=== PATIENT | female | born 1960 | race Caucasian/White ===

== ENCOUNTER 2017-03-01 08:24 | Inpatient (IN) | payer BC ==
[2017-03-01] VITALS (25 sets, daily range): BP systolic 102–138; BP diastolic 62–83; PULSE 58–77; RESP 11–26; Ht 160 cm; Wt 86.7 kg
[~2017-03-01] VITALS: Ht 160 cm; Wt 86.7 kg
[~2017-03-01 08:24] MED LIST: BUPIVACAINE 0.5% (SDV) 30 ML, morphine SULFATE (PF) 8 MG, EPINEPHrine 0.3 MG, KETOROLAC... IRR SCH; CEFAZOLIN 2 GM/50 ML (PMX) 50 ML IVPB SCH; DEXAMETHASONE 1 MG TAB PO SCH; GABAPENTIN 300 MG CAP PO SCH; SOD CHLORIDE 0.9% 100 ML, TRANEXAMIC ACID 3,000 MG IRR SCH; TRANEXAMIC ACID 1,000 MG in SOD CHLORIDE 0.9% 100 ML IVPB SCH
--- NOTE | 2017-03-01 08:44 | HPN ---
Date/Time of Note Date/Time of Note DATE: 03/01/17 TIME: 08:43 Interval H&P Admission Note Pt. seen H&P reviewed: No system changes AARON ACEVEDO MD Mar 01, 2017 08:44
[2017-03-01] MEDS ORDERED: VALS1TAB78 PO (09:19)
[2017-03-01] MEDS ORDERED: AMLO5TAB4 PO (09:22)
[2017-03-01] MEDS ORDERED: LACTATED RINGER'S 1,000 ML IV* SCH (10:00)
[2017-03-01] MEDS ORDERED: DIPHENHYDRAMINE 50 MG INJ IV PRN ×2 (11:00→14:30)
[2017-03-01] MEDS ORDERED: FENTAnyl 50 MCG/ML VIAL IV PRN ×2 (11:00)
[2017-03-01] MEDS ORDERED: HYDROmorphONE (0.2 MG/ML) 10ML SYG IV PRN ×2 (11:00)
[2017-03-01] MEDS ORDERED: OXYCODONE/ACETAMINOPHEN (5/325) TAB PO PRN ×2 (11:00→14:30)
[2017-03-01] MEDS ORDERED: ONDANSETRON 4 MG INJ IV PRN ×2 (11:00→14:30)
[2017-03-01] MEDS ORDERED: METOCLOPRAMIDE 10 MG INJ IV PRN (11:00)
[2017-03-01] MEDS ORDERED: MEPERIDINE 25 MG INJ IV PRN (11:00)
[2017-03-01] MEDS ORDERED: THROMBIN 5000 UNIT VIAL ONE (11:30)
[2017-03-01] MEDS ORDERED: POLYMYXIN/BACITRACIN 1L IRRIG ONE (11:30)
[2017-03-01] MEDS ORDERED: morphine SULFATE/PF (10 MG/10 ML) INJ ONE (11:56)
[2017-03-01] MEDS ORDERED: MIDAZOLAM 1 MG/ML 2 ML INJ ONE (12:02)
[2017-03-01] MEDS ORDERED: CEFAZOLIN 1 GM INJ ONE (12:41)
[2017-03-01] MEDS ORDERED: LIDOCAINE 2% (SDV) 5 ML INJ ONE (12:41)
[2017-03-01] MEDS ORDERED: PROPOFOL 20 ML ONE (12:41)
[2017-03-01] MEDS ORDERED: SUCCINYLCHOLINE CHLORIDE 100 MG/5 ML SYG IV ONE (12:41)
[2017-03-01] MEDS ORDERED: ROCURONIUM 50 MG INJ ONE (12:41)
[2017-03-01] MEDS ORDERED: SUGAMMADEX SODIUM 200 MG/2 ML VIAL IV ONE (12:41)
[2017-03-01] MEDS ORDERED: CA CHLORIDE (GM) 10% 10 ML INJ INJ ONE (13:38)
--- NOTE | 2017-03-01 14:25 | OPR ---
Date/Time of Note Date/Time of Note DATE: 03/01/17 TIME: 14:19 Operative Report Procedure Date: Mar 01, 2017 Preoperative Diagnosis Right hip arthritis Postoperative Diagnosis Right hip primary arthritis Operation Performed Right total hip replacement Surgeon: AARON ACEVEDO MD [employer]: JOSAFAT RINALDI MD Anesthesia Type: general Estimated Blood Loss: 50 - 100 ml's Transfusion Required: no Complications: no Pt Condition Post Procedure: stable Disposition: PACU Procedure Description HOGSHEAD STRIPPER SURGEON: Josafat Rinaldi MD was asked to be present at my request as a result of the complexity associated with this procedure including positioning of the extremity, positioning of the instrumentation and protection of the neurovascular structures. In my opinion, the assistance offered by a assembler surgical garment is insufficient and Laurie Rinaldi should be compensated for his time. PROCEDURE IN DETAIL: Following the administration of general endotracheal anesthesia supplemented with a spinal anesthetic, the patient was placed in the supine position. The bilateral lower extremities were then prepped and draped in the usual sterile fashion. A field service supervisor radiograph was obtained for preliminary limb length and femoral size as well as acetabular size. A lateral incision was then made exposing the tensor fascia the fascia was incised the tensor was retracted laterally and the vessels were cauterized. The anterior capsule was then identified and prepared. A capsulectomy was then performed and the femoral head was then evaluated. Severe arthritic changes were noted. A femoral head cut was then made in the appropriate degree of version and inclination. The acetabulum was then exposed and a capsulectomy and labrectomy were completed. The central portion was then entered and serially reamed up to the 47 mm size. A Depuy [place] cup which is 48 mm in size with a standard liner was then fit into position with solid fixation. A 30 mm screw was used for additional fixation. Attention was then directed to the femur, the femur was exposed and prepared. The canal was entered and serially reamed up to the 9 mm size. A 9 mm Depuy [place] stem was then inserted with solid fixation. A +1.5 femoral head, which was ceramic was then inserted. The leg was taken through full range of motion with no evident instability. In addition, radiographs revealed excellent position with reproduction of the limb lengths within a millimeter. The wound was irrigated thoroughly. The wound was then closed in layers and a Prenio for the final cover. This was watertight. Estimated blood loss was procedure was 100 cc. Postoperative radiographs will be obtained in the recovery room. AARON ACEVEDO MD Mar 01, 2017 14:25
[2017-03-01] MEDS ORDERED: morphine 4 MG/ML VIAL IV PRN (14:30)
[2017-03-01] MEDS ORDERED: MAGNESIUM HYDROXIDE 30ML CUP PO PRN (14:30)
[2017-03-01] MEDS ORDERED: KETOROLAC 15 MG INJ IV PRN (14:30)
[2017-03-01] MEDS ORDERED: ACETAMINOPHEN 500 MG TAB PO PRN (14:30)
[2017-03-01] MEDS ORDERED: morphine 2 MG INJ IV PRN (14:30)
[2017-03-01] MEDS ORDERED: ZOLPIDEM 5 MG TAB PO PRN (14:30)
[2017-03-01] MEDS ORDERED: BETHANECHOL 25 MG TAB PO PRN (14:30)
[2017-03-01] MEDS ORDERED: TRANEXAMIC ACID 1,000 MG in SOD CHLORIDE 0.9% 100 ML IV ONE (14:30)
[2017-03-01] MEDS: CEFAZOLIN 1 GM/50 ML (PMX) 50 ML IVPB SCH ×2 (15:24→22:37)
[2017-03-01] MEDS: LACTATED RINGER'S 1,000 ML IV SCH (15:24)
--- NOTE | 2017-03-01 15:52 | RADRPT ---
PROCEDURE: XR Pelvis. CLINICAL INDICATION: Pelvic pain. Postop. TECHNIQUE: Single frontal view. COMPARISON: Intraoperative imaging done earlier the same day. FINDINGS: There is a right hip total arthroplasty. This appears satisfactory with no fracture, dislocation or loosening. There is no lytic lesion. The left hip is normal. Gas is present in the soft tissues overlying the right hip from the recent surgery. There is a Haji catheter in the bladder. IMPRESSION: 1. Satisfactory postoperative appearance of the right hip. RPTAT: QQ .Contreras Ruth MD, MD Date Time Electronically viewed and signed by .Contreras Ruth MD, on 03/01/2017 15:52 .R/
--- NOTE | 2017-03-01 15:53 | RADRPT ---
PROCEDURE: Intraoperative imaging of the right hip with fluoroscopy. CLINICAL INDICATION: Right hip pain. Intraoperative. TECHNIQUE: Four images of the right hip were obtained in the operating room with an image intensif ier. No radiologist was in attendance. 0.5 minutes of fluoroscopy time was used. COMPARISON: No prior study is available for comparison. FINDINGS: Images demonstrate placement of a total right hip arthroplasty. IMPRESSION: 1. Satisfactory intraoperative imaging of the right hip. RPTAT: QQ .Contreras Ruth MD, MD Date Time Electronically viewed and signed by .Contreras Ruth MD, on 03/01/2017 15:52 .R/
[2017-03-01 16:48] LABS: BASOPHILS % 0.4 % (0.0-2.0); EOSINOPHILS % 0.3 % (0.0-7.0); HEMATOCRIT 36.4 % (37.0-47.0); HEMOGLOBIN 11.6 g/dl (12.0-16.0); LYMPHOCYTES # 1.1 10^3/ul (0.8-2.9); LYMPHOCYTES % 10.6 % (15.0-51.0); MEAN CORPUSCULAR HEMOGLOBIN 29.5 pg (29.0-33.0); MEAN CORPUSCULAR HGB CONC 31.9 g/dl (32.0-37.0); MEAN CORPUSCULAR VOLUME 92.6 fl (82.0-101.0); MEAN PLATELET VOLUME 10.7 fl (7.4-10.4); MONOCYTE # 0.3 10^3/ul (0.3-0.9); MONOCYTES % 2.9 % (0.0-11.0); NEUTROPHIL # 8.7 10^3/ul (1.6-7.5); NEUTROPHILS % 85.1 % (39.0-77.0); PLATELET COUNT 249 10^3/UL (140-415); RED BLOOD COUNT 3.93 10^6/ul (4.20-5.40); WHITE BLOOD COUNT 10.2 10^3/ul (4.8-10.8)
[2017-03-01] MEDS: DEXAMETHASONE 2 MG TAB PO SCH (18:48)
[2017-03-01] MEDS: SENNA/DOCUSATE NA (8.6MG/50MG) TAB PO SCH (20:44)
[2017-03-01] MEDS ORDERED: GABAPENTIN 300 MG CAP PO SCH (21:00)
[2017-03-02] MEDS: LACTATED RINGER'S 1,000 ML IV SCH (00:16)
[2017-03-02] MEDS: DEXAMETHASONE 2 MG TAB PO SCH ×3 (00:21→11:46)
[2017-03-02 02:05] VITALS: BP 104/60; RESP 18
[2017-03-02] MEDS: CEFAZOLIN 1 GM/50 ML (PMX) 50 ML IVPB SCH (05:55)
[2017-03-02 06:01] LABS: BASOPHILS % 0.2 % (0.0-2.0); HEMATOCRIT 33.9 % (37.0-47.0); HEMOGLOBIN 11.1 g/dl (12.0-16.0); LYMPHOCYTES # 0.6 10^3/ul (0.8-2.9); LYMPHOCYTES % 6.2 % (15.0-51.0); MEAN CORPUSCULAR HEMOGLOBIN 30.2 pg (29.0-33.0); MEAN CORPUSCULAR HGB CONC 32.7 g/dl (32.0-37.0); MEAN CORPUSCULAR VOLUME 92.4 fl (82.0-101.0); MEAN PLATELET VOLUME 10.7 fl (7.4-10.4); MONOCYTE # 0.5 10^3/ul (0.3-0.9); MONOCYTES % 4.9 % (0.0-11.0); NEUTROPHIL # 9.1 10^3/ul (1.6-7.5); NEUTROPHILS % 88.4 % (39.0-77.0); PLATELET COUNT 253 10^3/UL (140-415); RED BLOOD COUNT 3.67 10^6/ul (4.20-5.40); RED CELL DISTRIBUTION WIDTH 13.5 % (11.5-14.5); WHITE BLOOD COUNT 10.3 10^3/ul (4.8-10.8)
--- NOTE | 2017-03-02 06:19 | PDOCDIS ---
Discharge Instructions DIAGNOSIS Discharge Diagnosis Primary hip arthritis CONDITION Patient Condition: Good HOME CARE INSTRUCTIONS: Diet Instructions: Regular ACTIVITY: Activity Restrictions: Slowly Increase Activity Keep Limb Elevated Bathing Restrictions: Shower FOLLOW UP/APPOINTMENTS Follow-up Plan 2 weeks SCHOOL/WORK RELEASE May return to School/Work with: With Restrictions School/Work Release Comment: No hip extension for 6 weeks AARON ACEVEDO MD Mar 02, 2017 06:19
--- NOTE | 2017-03-02 06:58 | PN ---
Date/Time of Note Date/Time of Note DATE: 03/02/17 TIME: 06:57 24 hour Interval Summary Patient is awake and alert and very comfortable. Physical Exam Physical examination: She is neurologically intact. She has no signs of DVT. Her wound is clean and dry. Passive motion is not painful. Vital Signs Date Time Temp Pulse Resp B/P Pulse Ox O2 Delivery O2 Flow Rate FiO2 03/02/17 02:05 98.0 56 18 104/60 97 03/01/17 20:00 Nasal Cannula 1.0 Intake and Output 03/01/17 03/01/17 03/02/17 15:00 23:00 07:00 Intake Total 1600 ml 100 ml 1650 ml Output Total 400 ml 200 ml 2300 ml Balance 1200 ml -100 ml -650 ml VTE Prophylaxis VTE Prophylaxis Intervention: anti-embolic stocking Lines/Catheters IV Catheter Type: Saline Lock Haji in Place: No Results Result Diagram: 03/02/17 0448 Results 24hrs Laboratory Tests Test 03/01/17 15:29 03/02/17 04:48 White Blood Count 10.2 10.3 Red Blood Count 3.93 L 3.67 L Hemoglobin 11.6 L 11.1 L Hematocrit 36.4 L 33.9 L Mean Corpuscular Volume 92.6 92.4 Mean Corpuscular Hemoglobin 29.5 30.2 Mean Corpuscular Hemoglobin Concent 31.9 L 32.7 Red Cell Distribution Width 14.0 13.5 Platelet Count 249 253 Mean Platelet Volume 10.7 H 10.7 H Neutrophils % 85.1 H 88.4 H Lymphocytes % 10.6 L 6.2 L Monocytes % 2.9 4.9 Eosinophils % 0.3 0.0 Basophils % 0.4 0.2 Nucleated Red Blood Cells % 0.0 0.0 Neutrophils # 8.7 H 9.1 H Lymphocytes # 1.1 0.6 L Monocytes # 0.3 0.5 Eosinophils # 0.0 0.0 Basophils # 0.0 0.0 Nucleated Red Blood Cells # 0.0 0.0 Assessment/Plan Assessment/Plan Assessment: Status post total hip replacement with good outcome thus far Plan: She will begin physical therapy this morning. Discharged either this morning or later today. Medications Medications Home Meds Reported Medications Amlodipine Besylate* (Norvasc*) 5 Mg Tablet, 5 MG PO DAILY, TAB 03/01/17 Valsartan-Hydrochlorothiazide (Valsartan-HCTZ) 160-25 Mg Tablet, 1 TAB PO DAILY , #30 TAB 03/01/17 AARON ACEVEDO MD Mar 02, 2017 06:58
--- NOTE | 2017-03-02 06:59 | DS ---
Date/Time of Note Date/Time of Note DATE: 03/02/17 TIME: 06:58 Discharge Summary Admission/Discharge Info Admit Date/Time Mar 01, 2017 at 08:24 Discharge Date/Time March 02, 2017 following clearance by physical therapy Discharge Diagnosis Primary hip arthritis Patient Condition: Good Procedures Right total hip replacement Hx of Present Illness Pain and stiffness in the right hip for many years Hospital Course Patient was admitted and underwent an uncomplicated procedure. Postoperative day #1 she was awake and alert she was cleared by physical therapy and discharged home Home Meds Reported Medications Amlodipine Besylate* (Norvasc*) 5 Mg Tablet, 5 MG PO DAILY, TAB 03/01/17 Valsartan-Hydrochlorothiazide (Valsartan-HCTZ) 160-25 Mg Tablet, 1 TAB PO DAILY , #30 TAB 03/01/17 Follow-up Plan 2 weeks Primary Care Provider Not On Staff Doctor Pending Labs Laboratory Tests Test 03/01/17 15:29 03/02/17 04:48 White Blood Count 10.210^3/ul (4.8-10.8) 10.310^3/ul (4.8-10.8) Red Blood Count 3.9310^6/ul (4.20-5.40) 3.6710^6/ul (4.20-5.40) Hemoglobin 11.6g/dl (12.0-16.0) 11.1g/dl (12.0-16.0) Hematocrit 36.4% (37.0-47.0) 33.9% (37.0-47.0) Mean Corpuscular Volume 92.6fl (82.0-101.0) 92.4fl (82.0-101.0) Mean Corpuscular Hemoglobin 29.5pg (29.0-33.0) 30.2pg (29.0-33.0) Mean Corpuscular Hemoglobin Concent 31.9g/dl (32.0-37.0) 32.7g/dl (32.0-37.0) Red Cell Distribution Width 14.0% (11.5-14.5) 13.5% (11.5-14.5) Platelet Count 09004^3/UL (140-415) 09881^3/UL (140-415) Mean Platelet Volume 10.7fl (7.4-10.4) 10.7fl (7.4-10.4) Neutrophils % 85.1% (39.0-77.0) 88.4% (39.0-77.0) Lymphocytes % 10.6% (15.0-51.0) 6.2% (15.0-51.0) Monocytes % 2.9% (0.0-11.0) 4.9% (0.0-11.0) Eosinophils % 0.3% (0.0-7.0) 0.0% (0.0-7.0) Basophils % 0.4% (0.0-2.0) 0.2% (0.0-2.0) Nucleated Red Blood Cells % 0.0/100WBC (0.0-0.0) 0.0/100WBC (0.0-0.0) Neutrophils # 8.710^3/ul (1.6-7.5) 9.110^3/ul (1.6-7.5) Lymphocytes # 1.110^3/ul (0.8-2.9) 0.610^3/ul (0.8-2.9) Monocytes # 0.310^3/ul (0.3-0.9) 0.510^3/ul (0.3-0.9) Eosinophils # 0.010^3/ul (0.0-0.5) 0.010^3/ul (0.0-0.5) Basophils # 0.010^3/ul (0.0-0.1) 0.010^3/ul (0.0-0.1) Nucleated Red Blood Cells # 0.010^3/ul (0.0-0.0) 0.010^3/ul (0.0-0.0) AARON ACEVEDO MD Mar 02, 2017 06:59
[2017-03-02 07:27] VITALS: BP 113/67; RESP 19
[2017-03-02] MEDS ORDERED: HYDROCHLOROTHIAZIDE 25 MG TAB PO SCH (09:00)
[2017-03-02] MEDS ORDERED: ASPIRIN 81 MG TAB PO SCH (09:00)
[2017-03-02] MEDS ORDERED: AMLODIPINE 5 MG TAB PO SCH (09:00)
[2017-03-02] MEDS ORDERED: VALSARTAN 160 MG TAB PO SCH (09:00)
[2017-03-02] MEDS: SENNA/DOCUSATE NA (8.6MG/50MG) TAB PO SCH (10:34)
[2017-03-02] MEDS: OXYCODONE/ACETAMINOPHEN (5/325) TAB PO PRN ×2 (11:48→17:25)
[2017-03-02 14:00] VITALS: BP 123/59; RESP 19
[2017-03-02 19:41] VITALS: BP 125/75; RESP 20
== END 2017-03-02 20:10 | disposition home or self-care (01) | DRG 470 ==
LOC: REC 08:24 → MS1 16:15
PROVIDERS: ADMIT Orthopaedic Surgery; ATTEND Orthopaedic Surgery
PROC: 0SR904A Replacement of Right Hip Joint with Ceramic on Polyethylene Synthetic Substitute, Uncemented, Open Approach (ICD-10-PCS; principal; 2017-03-01 12:00)
DX: M16.11 Unilateral primary osteoarthritis, right hip (principal)
CPT/HCPCS: 72170; 73530; 85025; 86999; 87086; 88304; 97116; 97163; 97530; C1713; C1776; J0171; J0690; J0735; J1885; J2250; J2274; J3370; J7120; J7999